=== PATIENT | male | born 1995 | race Caucasian/White ===

== ENCOUNTER 2023-09-25 15:36 | Outpatient (CLI) | payer OTHER ==
--- NOTE | 2023-09-26 11:55 | XRAY Report ---
PROCEDURE: Foot 3+V LT INDICATIONS: LEFT FOOT SPRAIN TECHNIQUE: 3 views of the foot were obtained. COMPARISON: None FINDINGS: Bones: No fractures or dislocations. No suspicious bony lesions. Soft tissues: Unremarkable. No radiopaque foreign body. Generalized soft tissue swelling IMPRESSION: Soft tissue swelling without fracture or foreign body Reviewed by: Abdias Hagan MD on 09/26/2023 10:54 AM YUDY Approved by: Abdias Hagan MD on 09/26/2023 10:54 AM [email or web address] Station ID: [id number]
== END 2023-09-25 15:37 | disposition home or self-care (01) ==
LOC: EDBD 15:36 → DI 15:36
PROVIDERS: ATTEND Family Medicine
DX: R22.42 Localized swelling, mass and lump, left lower limb (principal)